=== PATIENT | female | born 1990 | race Caucasian/White ===

== ENCOUNTER → 2017-11-11 13:02 | Outpatient (CLI) | payer OTHER, SELFPAY ==
[2017-11-16 17:21] LABS: HPV Reflexed? NOT INDICATED
== END ==
PROVIDERS: Visit Provider Obstetrics & Gynecology
DX: Z12.4 Encounter for screening for malignant neoplasm of cervix (principal); Z01.419 Encounter for gynecological examination (general) (routine) without abnormal findings
CPT/HCPCS: 88175; G0145

== ENCOUNTER → 2018-06-21 13:10 | Outpatient (CLI) | payer OTHER, SELFPAY ==
[2018-06-21 15:33] LABS: Chlamydia Trachomatis by PCR Negative (Negative); Neisserai gonorrhoeae by PCR Negative (Negative); Probe Check PASS; Sample Adequacy Control PASS; Specimen Processing Control PASS
--- OUTSIDE RECORDS SUMMARY | 2018-08-07 16:51 | XMS RPT_ITS ---
:1990 Author Organization OHIP Care Team Providers Name Role Phone Zaira Nicole Attending Unavailable Zaira Nicole Attending Unavailable Zaira Nicole Attending Unavailable PROBLEMS PROBLEMS DATE TYPE CONDITION / CODE ATTENDING STATUS SOURCE 07/22/2018 Unknown Z34.81 - Encounter Bonnie Active [place] for supervision of [facility] other normal Hospital , first Repository trimester / Z34.81(ICD-10) 06/22/2018 Unknown Z32.01 - Encounter [place]nie Active [place] for test, [facility] result positive / Hospital Z32.01(ICD-10) Repository 06/22/2018 Unknown Z11.3 - Encounter Barron Nicole [place] for screening for [facility] infections with a Hospital predominantly Repository sexual mode of transmission / Z11.3(ICD-10) 11/11/2017 Unknown Z12.4 - Encounter Bonnie Active [place] for screening for [facility] malignant neoplasm Hospital of cervix / Repository Z12.4(ICD-10) 11/11/2017 Unknown Z01.419 - Encounter Bonnie Active [place] for gynecological [facility] examination Hospital (general) (routine) Repository without abnormal findings / Z01.419(ICD-10) PROCEDURES PROCEDURES No Procedure Records FoundRESULTS RESULTS URINALYSIS, ROUTINE Collected: 07/22/2018 Status: F Source: [place] (DIPSTICK) 2:38 PM [facility] REPOSITORY Order Comment: How was Urine Obtained? Urine, Random TYPE CODE TESTS RESULT OUT OF RANGE REFERENCE UNITS LAB L400.3000 Yellow COLOR Normal Yellow LAB L400.3050 Clear Normal CLARITY Clear LAB L400.3200 Normal mg/dl Normal GLUCOSE, UR Normal LAB L400.3300 Negative mg/dL Normal BILIRUBIN URINE Negative LAB L400.3400 Negative mg/dl Normal KETONE UR Negative LAB L400.3465 1.002-1.030 Normal SP.GR. DIPSTX 1.010 LAB L400.3550 5.0 - 8.0 pH UR Normal 7.0 LAB L400.3600 Negative mg/dl PROT Normal DIPSTX Negative LAB L400.3700 Normal mg/dl Normal UROBILI Normal LAB L400.3750 Negative Normal NITRITE UR Negative LAB L400.3780 Negative /ul High 50 OCCULT BLOOD-UR LAB L400.3800 Negative /ul High LEUK ESTERASE 500 Performed By: #### L400.2010 #### [facility] [address] [place], [address] RUBELLA IGG Collected: 07/22/2018 Status: F Source: [place] 2:38 PM [facility] REPOSITORY TYPE CODE TESTS RESULT OUT OF RANGE REFERENCE UNITS LAB L509.4000 IU/mL Normal Rubella IgG 127.9 Result Comment: Antibody results Interpretation of Immune Status < 5 IU/ml Presumed Non-immune 5 - < 10 IU/ml Equivocal > or = 10 IU/ml Presumed Immune Performed By: #### L509.4000, L3890.6005 #### [facility] [address] [facility] [address] HIV - [facility] Collected: 07/22/2018 Status: F Source: SP[place] 2:38 PM [facility] REPOSITORY TYPE CODE TESTS RESULT OUT OF RANGE REFERENCE UNITS LAB L3890.6005 Nonreactive Normal HIV - WC Non-Reactive Performed By: #### L509.4000, L3890.6005 #### [facility] [address] [place], [address] T AND S-NO Collected: 07/22/2018 Status: F Source: [place] CHARGE W/PNP 2:38 PM [facility] REPOSITORY Order Comment: Reason for Type AND Screen/Red Cells: Surgery? N TYPE CODE TESTS RESULT OUT OF RANGE REFERENCE UNITS LAB B10.0800 O Normal BLOOD POSITIVE TYPE GEL LAB B100.4050 Normal Ab SCREEN NEGATIVE GEL Performed By: #### B100.7550 #### [facility] [address] [place], [place], [address] CBC W/DIFF, AUTOMATED Collected: 07/22/2018 Status: F Source: [place] 2:38 PM [facility] REPOSITORY TYPE CODE TESTS RESULT OUT OF RANGE REFERENCE UNITS LAB L100.1000 4.4-11.0 K/mm3 Normal WBC 6.9 LAB L100.1200 4.2-5.4 M/mm3 Normal RBC 4.33 LAB L100.1300 12.0-15.0 g/dl Normal HGB 12.4 LAB L100.1400 37-47 % Normal HCT 37.8 LAB L100.1500 81-99 fL Normal MCV 87.3 LAB L100.1600 27.0-32.0 pg Normal MCH 28.6 LAB L100.1700 32-36 g/gl Normal MCHC 32.8 LAB L100.1810 11.6-14.6 % Normal RDW CV 14.6 LAB L100.1820 35.1-43.9 fl High RDW SD 46.8 LAB L100.1900 150-450 K/mm3 Normal PLT 239 LAB L100.2000 6.2-12.0 fl Normal MPV 10.1 LAB L100.2100 47-70 % High NEUT% 73.3 LAB L100.2200 19-41 % Normal LY% 19.7 LAB L100.2300 0-10 % Normal MONO% 6.1 LAB L100.2400 0-5 % Normal EO% 0.7 LAB L100.2500 0-1 % Normal BASO% 0.1 LAB L100.2550 0.0-0.9 % Normal IM GRAN % 0.100 Result Comment: IG% - Immature Granulocytes (promyelocytes, myelocytes and metamyelocytes) > 1% indicates that a LEFT SHIFT is Present. LAB L100.2620 2.0-7.7 X10 3/uL Normal Absolute Neut 5.1 LAB L100.2720 0.83-4.51 X10 3/ul Normal Absolute Lymph 1.37 Performed By: #### L100.0100 #### [facility] [address] [place], [address] RPR Collected: 07/22/2018 Status: F Source: [place] 2:38 PM [facility] REPOSITORY TYPE CODE TESTS RESULT OUT OF REFERENCE UNITS RANGE LAB L700.5100 NONREACTIVE Normal RPR NONREACTIVE Performed By: #### L700.5100 #### [facility] [address] [place], [place], [address] HEPATITIS B SURFACE Collected: 07/22/2018 Status: F Source: [place] AG 2:38 PM [facility] REPOSITORY TYPE CODE TESTS RESULT OUT OF RANGE REFERENCE UNITS LAB L3100.0400 Negative Normal HB Negative SURF AG Result Comment: Performed at: [facility] [id number] Orientor: Dani Vaca PhD, Phone: [phone] Performed By: #### L3100.0390, L3100.0625 #### [facility] (refer to report for specific site) refer to report for address and phone number HEPATITIS C ANTIBODIES Collected: 07/22/2018 Status: F Source: [place] 2:38 PM [facility] REPOSITORY TYPE CODE TESTS RESULT OUT OF RANGE REFERENCE UNITS LAB L3100.0650 0.0-0.9 s/co ratio Normal HEP C AB <0.1 Result Comment: Negative: < 0.8 Indeterminate: 0.8 - 0.9 Positive: > 0.9 The CDC recommends that a positive HCV antibody result be followed up with a HCV Nucleic Acid Amplification test ([id number]). Performed By: #### L3100.0390, L3100.0625 #### [facility] (refer to report for specific site) refer to report for address and phone number CT/NG [facility] BY PCR Collected: 06/21/2018 Status: F Source: [place] 9:40 AM [facility] REPOSITORY TYPE CODE TESTS RESULT OUT OF RANGE REFERENCE UNITS LAB L8200.2100 Negative Normal Chlam Negative Trac PCR LAB L8200.2200 Negative Normal NG by Negative PCR Performed By: #### L8200.1999 #### [facility] [address] [place], [place], [address] PAP I-G W/RFX Collected: 11/11/2017 Status: F Source: [place] HRHPV-APTIMA 11:10 AM [facility] REPOSITORY Order Comment: CYTOLOGY INFORMATION: - CLINICAL INFORMATION: - DATE LMP/MENOPAUSE: 10-24-17 LMP - COLLECTION VIAL: Thin Prep Vial - SOFTWARE DEVELOPMENT SPECIALIST SOURCE: CERVICAL/ENDOCERVICAL - COLLECTION TECHNIQUE: BRUSH/SPATULA Specimen Comment: [id number] Specimen Comment: No. of containers..01 ThinPrep Vial TYPE CODE TESTS RESULT OUT OF RANGE REFERENCE UNITS LAB L7400.0800 . Normal DIAGN Comment Result Comment: NEGATIVE FOR INTRAEPITHELIAL LESION AND MALIGNANCY. THIS SPECIMEN WAS RESCREENED PART OF OUR COMMERCIAL CREDIT SPECIALIST PROGRAM. LAB L7400.0900 . Normal ADEQ Comment Result Comment: Satisfactory for evaluation. Endocervical and/or squamous metaplastic cells (endocervical component) are present. LAB L7400.1400 . Normal PERFORM Comment Result Comment: Sally Stevens, Family Development Extension Specialist (ASCP) LAB L7400.1500 . Normal QC Comment REV Result Comment: Jesika Garcia, Family Development Extension Specialist (ASCP) LAB L7400.2575 . Normal TEST METHOD Comment Result Comment: This liquid based ThinPrep(R) pap test was screened with the use of an image guided system. LAB L7400.2600 . Normal . COMM LAB L7400.2700 . Normal PAPSMR Comment Result Comment: The Pap smear is a screening test designed to aid in the detection of premalignant and malignant conditions of the uterine cervix. It is not a diagnostic procedure and should not be used as the sole means of detecting cervical cancer. Both false-positive and false-negative reports do occur. LAB L7400.2800 . Normal HPV RFLX Comment Result Comment: The HPV DNA reflex criteria were not met with this specimen result therefore, no HPV testing was performed. Performed at: - [facility] [id number] Orientor: Khushi Camargo MD, Phone: [phone] Performed By: #### L7400.0353 #### [facility] (refer to report for specific site) refer to report for address and phone number ALLERGIES ALLERGIES No Allergies Records FoundENCOUNTERS ENCOUNTERS ADMIT/DISCHARGE ACCOUNT ADMITTING ENCOUNTER LOCATION SOURCE NUMBER CLASS 07/22/2018 [id number] Ambulatory [place] 0 [facility] ing:WOBLAB Repository 06/21/2018 [id number] Ambulatory [place] 8 [facility] ing:LABSPEC Repository 11/11/2017 [id number] Ambulatory [place] 5 [facility] ing:WOBLAB Repository PAYERS PAYERS ENCOUNTER GUARANTOR PAYER SUBSCRIBER SOURCE 07/22/2018 [place] Primary ADDISON [id number] Insurance:AULTCAREPol CHRISTNERDOB: [facility] icy [place]: [id number] [id number] Repository [address]Cnw: (330) Date:8310-51-21[phone] () [address] [address]BG: 07/22/2018 Secondary NOT GIVENUNK [place] Insurance:SELF PAY [facility] Number: Effective Repository Date:2018-07-22 06/21/2018 [place] Primary ADDISON [id number] Insurance:AULTCAREPol CHRISTNERDOB: [facility] icy Number: [id number], [place] [id number] Repository [address]Ufs: . Date:6452-37-08LV [address] ) [address] [address]JO: 06/21/2018 Secondary NOT GIVENUNK [place] Insurance:SELF PAY [facility] Number: Effective Repository Date:2018-06-21 11/11/2017 [place] Primary ADDISON Ortiz [id number] Insurance:AULTCAREPol [facility] ic Number: [place], [place] [id number] Repository [address]Wma: . Date:7683-94-81[address] () [address] [address]RC: 11/11/2017 Secondary NOT GIVENUNK [place] Insurance:SELF PAY [facility] Number: Effective Repository Date:2017-11-11
== END ==
PROVIDERS: Visit Provider Obstetrics & Gynecology
DX: Z32.01 Encounter for pregnancy test, result positive (principal); Z11.3 Encounter for screening for infections with a predominantly sexual mode of transmission
CPT/HCPCS: 87491; 87591

== ENCOUNTER → 2018-07-22 14:32 | Outpatient (CLI) | payer OTHER, SELFPAY ==
[2018-07-22 15:05] LABS: Color, Urine Yellow (Yellow); Glucose, Dipstick Normal (Normal); Ketone-Dipstick Negative (Negative); Leukocyte Esterase-Dipstick 500 /ul (Negative); Nitrite-Dipstick Negative (Negative); Occult Blood-Urine 50 /ul (Negative); Protein-Dipstick Negative (Negative); Urine Bilirubin Dipstick Negative (Negative); Urine Clarity Clear (Clear); Urine Urobilinogen Normal (Normal)
[2018-07-22 16:55] LABS: Absolute Lymphocyte Count 1.37 X10^3/ul (0.83-4.51); Absolute Neutrophil Count 5.1 X10^3/uL (2.0-7.7); Basophil# 0.01 X10^3/uL; Basophil% 0.1 % (0-1); Eosinophil# 0.05 X10^3/uL; Eosinophils% 0.7 % (0-5); Hematocrit 37.8 % (37-47); Hemoglobin 12.4 g/dl (12.0-15.0); Lymphocyte # 1.37 X10^3/ul (4.0); Lymphocyte % 19.7 % (19-41); Mean Corp Hgb Conc 32.8 g/gl (32-36); Mean Corpuscular Hgb 28.6 pg (27.0-32.0); Mean Corpuscular Volume 87.3 fL (81-99); Mean Platelet Vol. 10.1 fl (6.2-12.0); Monocyte# 0.42 X10^3/uL; Monocyte% 6.1 % (0-10); Neutrophil # 5.08 X10^3/uL (2.7-7.7); Neutrophil % 73.3 % (47-70); Platelet Count 239 K/mm3 (150-450); RBC Distribution Width CV 14.6 % (11.6-14.6); RBC Distribution Width SD 46.8 fl (35.1-43.9); Red Blood Count 4.33 M/mm3 (4.2-5.4); White Blood Count 6.9 K/mm3 (4.4-11.0)
[2018-07-22 17:25] LABS: HIV - WCH Non-Reactive (Nonreactive); Rubella IgG 127.9 IU/mL
[2018-07-22 18:19] LABS: POSITIVE COUNT NO; POSITIVE DIFFERENTIAL NO; POSITIVE MORPHOLOGY NO
[2018-07-29 00:14] LABS: Prenatal RPR NONREACTIVE (NONREACTIVE)
[2018-07-29 09:33] LABS: HEPATITIS B SURFACE AG Negative (Negative); Hep C Antibodies <0.1 s/co ratio (0.0-0.9)
== END ==
PROVIDERS: Visit Provider Obstetrics & Gynecology
DX: Z34.81 Encounter for supervision of other normal pregnancy, first trimester (principal)
CPT/HCPCS: 36415; 81002; 85025; 86703; 86762; 86803; 87340

== ENCOUNTER → 2018-11-24 10:09 | Outpatient (CLI) | payer OTHER, SELFPAY ==
[2018-11-24 12:12] LABS: Hematocrit 33.8 % (37-47); Hemoglobin 10.8 g/dl (12.0-15.0); Mean Corpuscular Hgb 27.1 pg (27.0-32.0); Mean Corpuscular Volume 84.7 fL (81-99); Mean Platelet Vol. 9.3 fl (6.2-12.0); Platelet Count 260 K/mm3 (150-450); RBC Distribution Width CV 14.2 % (11.6-14.6); RBC Distribution Width SD 43.2 fl (35.1-43.9); Red Blood Count 3.99 M/mm3 (4.2-5.4); White Blood Count 7.9 K/mm3 (4.4-11.0)
[2018-11-24 12:15] LABS: Scan Indicated on CBC? Y/N NO
[2018-11-24 12:43] LABS: Glucose Challenge Gest 1H 50g 135 mg/dL (70-140)
== END ==
PROVIDERS: Visit Provider Obstetrics & Gynecology
DX: Z34.83 Encounter for supervision of other normal pregnancy, third trimester (principal)
CPT/HCPCS: 36415; 82950; 85027

== ENCOUNTER → 2019-01-05 09:51 | Outpatient (CLI) | payer OTHER, SELFPAY | PROVIDERS: PCP Family Medicine; Visit Provider Obstetrics & Gynecology | DX: Z36.85 Encounter for antenatal screening for Streptococcus B (principal) | CPT/HCPCS: 87081 ==

== ENCOUNTER 2019-01-23 16:39 | Outpatient (CLI) | payer OTHER, SELFPAY ==
[2019-01-23 16:58] VITALS: BMI 34.7
--- NOTE | 2019-01-23 17:57 | OB.TRI.HP_ITS ---
- Problem List (1) Decreased movement Status: Acute Qualifiers: Fetus number: single or unspecified fetus Trimester: third trimester Qualified Code(s): O36.8130 - Decreased movements, third trimester, not applicable or unspecified History of Present Illness Date of Service: 01/23/19 Was patient seen by the physician?: Yes Reason For Visit: DECREASED MOVEMENT Final PATRICIA: 02/04/19 Gestational age: 38 Weeks and 2 Days History of Present Illness: 28yo sent from office for decreased FM with BPP 6/10 (-2 for gross movement and tone). Denies contractions, LOF, VB. Allergies hydromorphone [From Dilaudid] Adverse Reaction (Verified 01/23/19 17:01) Nausea Review of Systems Constitutional: Denies: Chills, Fever Respiratory: Denies: Shortness of Breath Gastrointestinal: Denies: Abdominal Pain, Nausea, Vomiting Gynecological: Denies: Vaginal bleeding Physical Exam General: Alert, Oriented x3, Cooperative, No apparent distress HEENT: Atraumatic, Normocephalic Abdomen: Soft, Non Tender, Non-Distended, Gravid Extremities:: No edema Neurological: Neuro grossly intact CLINICAL TRIAL EDUCATOR: Normal external genitalia Estimated gestational size: Appropriate for gestational size Cervix Dilation (cm): 3 Station: -3 Effacement (%): 60 - midposition, moderate NST - FHR Rate Baby A Baseline: 130 Variability:: Moderate Accelerations:: 15 x 15 Decelerations:: None NST Reactive:: Yes FHR Category:: Category I Uterine Activity:: 2/10 Impression/Plan Plan for continuous monitoring overnight with am US - BPP. If BPP remains 6/10 or less, will proceed with induction of labor.
[2019-01-23 22:38] LABS: ROM Internal Control Test YES-OK TO RESULT pt. (Internal QC); ROM Patient Test Negative (Negative)
[2019-01-23] MEDS: Mag Hydrox/Al Hydrox/Simeth 30 ML UDC PO (23:24)
--- NOTE | 2019-01-24 18:02 | US_ITS ---
STUDY: OBSTETRICAL ULTRASOUND - BIOPHYSICAL PROFILE REASON FOR EXAM: Female, 28 years old. Decreased movement. LMP: April 30, 2018. PRIOR ULTRASOUND: None. TECHNIQUE: Transabdominal TECHNICAL QUALITY: Adequate. FINDINGS: There is a single intrauterine fetus. The fetus is in a cephalic presentation. There is demonstrated cardiac activity with a heart rate of 132 bpm. There is a normal amniotic fluid volume. The largest amniotic fluid pocket measures 2.1 cm. The amniotic fluid index (SALLY) is 6.0 cm. The placenta is anterior in location and is not low lying. There are Grade 1 placental changes. Age by LMP: 38 weeks, 3 days. PATRICIA by LMP: February 04, 2019. Gender: Female BIOPHYSICAL PROFILE: Breathing Movements (FBM): 2 Gross Body Movements (GBM): 2 Tone (FT): 2 Amniotic Fluid Volume (AFV): 2 TOTAL SCORE: 8 / 8 US/Biophysical Prof W/O Non Stres IMPRESSION: Normal biophysical profile of 8/8. Electronically Signed: Flaco Griffin, at 10:34 EDT , Service support ,
== END 2019-01-24 11:25 | disposition home or self-care (01) ==
LOC: WPOUT 16:51 → WP 16:51
PROVIDERS: Family Provider Family Medicine; PCP Family Medicine; Referring Provider Obstetrics & Gynecology; Visit Provider Obstetrics & Gynecology
DX: O36.8130 Decreased fetal movements, third trimester, not applicable or unspecified (principal); Z3A.38 38 weeks gestation of pregnancy
CPT/HCPCS: 59025; 59050; 76819; 84112; 99218; G0378

== ENCOUNTER 2019-01-25 21:43 | Inpatient (IN) | payer OTHER, SELFPAY ==
[2019-01-25] MEDS: Lactated Ringers 1,000 ML 50 ML IV (22:40)
[2019-01-25 22:50] LABS: Absolute Lymphocyte Count 1.48 X10^3/uL (0.83-4.51); Absolute Neutrophil Count 6.8 X10^3/uL (2.0-7.7); Basophil# 0.01 X10^3/uL; Basophil% 0.1 % (0-1); Eosinophil# 0.06 X10^3/uL; Eosinophils% 0.7 % (0-5); Hematocrit 34.7 % (37-47); Hemoglobin 11.4 g/dL (12.0-15.0); Lymphocyte # 1.48 X10^3/ul (4.0); Lymphocyte % 16.3 % (19-41); Mean Corp Hgb Conc 32.9 g/dL (32-36); Mean Corpuscular Hgb 28.1 pg (27.0-32.0); Mean Corpuscular Volume 85.5 fL (81-99); Mean Platelet Vol. 9.3 fl (6.2-12.0); Monocyte# 0.65 X10^3/uL; Monocyte% 7.2 % (0-10); NRBC Flagged by Analyzer 0 % (0-5); Neutrophil # 6.83 X10^3/uL (2.7-7.7); Neutrophil % 75.3 % (47-70); Platelet Count 216 K/mm3 (150-450); RBC Distribution Width CV 18.1 % (11.6-14.6); RBC Distribution Width SD 55.6 fl (35.1-43.9); Red Blood Count 4.06 M/mm3 (4.2-5.4); White Blood Count 9.1 K/mm3 (4.4-11.0)
--- NOTE | 2019-01-25 22:51 | PCM.HPOB.BLA ---
History and Physical Date of Admission: 01/25/19 OB HISTORY AND PHYSICAL EXAMINATION History of this : 28 yo female Ab0 with EDC 02/04/2019 by Ultrasound, presents to Labor and Delivery with CC of gush of fluid. 38 5/7 wk in labor. care unremarkable. Pertinent Past Medical History: O positive GBS neg. Rubella Immune Negative. One prior vaginal delivery. Allergies: Dilaudid Medications: During - biotin 1 mg tablet; Mary 0.35 mg tablet; multivitamin tablet; 28 mg-800 mcg tablet; Keflex 500 mg capsule; ferrous gluconate 324 mg (37.5 mg iron) tablet Review of Systems: Gush of fluid, Some UCs. PHYSICAL EXAMINATION General Appearence: 28 yo female in no acute distress Vital Signs: AF, VSS Heart: RRR without rubs or gallops Lungs: CTA x 2 Breasts: deferred Abdomen: gravid Pelvis: Cervix: Presentation: cephalic Station: Fetus: Size: AGA Movement: present Heart: present reassuring. + UCs. Impression /Plan: Intrauterine . SROM. Presents with early labor 38 5/7 wk . Admit. Watch progress Anticipate See Progress Notes for Changes: Physician's Signature: Date:
[2019-01-25 22:52] VITALS: BMI 35.6
[2019-01-25] MEDS: Nalbuphine 10 MG/ML Ampul IV (23:12)
[2019-01-26] MEDS: Oxytocin 30 units/NS 500 ml 30 UNITS/500 ML IV.SOLN 334 UNITS IV (00:50)
--- NOTE | 2019-01-26 00:51 | DCINST_ITS ---
Discharge Diet: No Restrictions Discharge Activity: May Shower, May Take a Tub Bath May resume sexual activity in: 4-6 weeks Additional Activity Instructions:: Nothing in the vagina for 4-6 weeks. You may return to work/school in 6 weeks. Additional Instructions: If you experience any of the following, contact your healthcare provider. * Bleeding that soaks a pad every hour for 2 hours * Fever 100.4 or higher * Unrelieved abdominal pain * Problems urinating (including inability to urinate or burning while urinating). * Visual changes * Severe headache * Flu-like symptoms * Pain or redness in one of both of your breasts * Pain, warmth, tenderness or swelling in your legs, especially the calf area * Frequent nausea and vomiting * Symptoms of depression or anxiety If you experience any of the following, call 911 or go to the nearest Emergency Room. * Chest pain * Problems breathing * Seizure activity * Partial or complete paralysis of a body part, slurred speech, weakness or drooping of the face, or a sudden inability to walk or hold your balance Allergies/Adverse Reactions: Allergies hydromorphone [From Dilaudid] Adverse Reaction (Verified 01/23/19 17:01) Nausea Medications to take at Discharge Cetirizine HCl [Zyrtec] 10 mg PO DAILY 01/23/19 Ferrous Sulfate [Iron] 325 mg PO BID 01/23/19 Vits [Prenatabs FA] 1 tab PO DAILY 01/23/19 Please Follow Up With: Zaira Nicole MD - [phone] When: Call to make an appointment with your doctor in 6 weeks. Primary Care Physician: Shea Méndez [Primary Care Provider] - Test Results: Test results from this visit will be discussed in further detail at your follow- up appointment, if applicable. Proposed Discharge Date: 01/28/19
--- NOTE | 2019-01-26 00:51 | PCM.DCVAG ---
Discharge Diet: No Restrictions Discharge Activity: May Shower, May Take a Tub Bath May resume sexual activity in: 4-6 weeks Additional Activity Instructions:: Nothing in the vagina for 4-6 weeks. You may return to work/school in 6 weeks. Additional Instructions: If you experience any of the following, contact your healthcare provider. Bleeding that soaks a pad every hour for 2 hours Fever 100.4 or higher Unrelieved abdominal pain Problems urinating (including inability to urinate or burning while urinating). Visual changes Severe headache Flu-like symptoms Pain or redness in one of both of your breasts Pain, warmth, tenderness or swelling in your legs, especially the calf area Frequent nausea and vomiting Symptoms of depression or anxiety If you experience any of the following, call 911 or go to the nearest Emergency Room. Chest pain Problems breathing Seizure activity Partial or complete paralysis of a body part, slurred speech, weakness or drooping of the face, or a sudden inability to walk or hold your balance Allergies/Adverse Reactions: Allergies hydromorphone [From Dilaudid] Adverse Reaction (Verified 01/23/19 17:01) Nausea Medications to take at Discharge Cetirizine HCl [Zyrtec] 10 mg PO DAILY 01/23/19 Ferrous Sulfate [Iron] 325 mg PO BID 01/23/19 Vits [Prenatabs FA] 1 tab PO DAILY 01/23/19 Please Follow Up With: Zaira Nicole MD - [phone] When: Call to make an appointment with your doctor in 6 weeks. Primary Care Physician: Shea Méndez [Primary Care Provider] - Test Results: Test results from this visit will be discussed in further detail at your follow-up appointment, if applicable. Proposed Discharge Date: 01/28/19
--- NOTE | 2019-01-26 00:53 | PCM.OPRPT ---
Vaginal Delivery Maternal Presentation: Active Labor, Spontaneous Rupture of Membranes Final PATRICIA: 02/04/19 Final PATRICIA Source: US <20 weeks Gestational age: 38 Weeks and 5 Days Date of Procedure: 01/26/19 Pre-Operative Diagnosis: 38 5/7 wk SROM Labor Post-Operative Diagnosis: Same Surgery/ Procedure Performed: Spontaneous Vaginal Delivery Anesthesiologist: Constantino Santoyo MD Type of Anesthesia: Epidural Description of Procedure: of a diaz viable female over intact perineum. head delivered ZAIRA. OP and nares bulb suctioned on perineum. no nuchal cord. Shoulders delivered easily. to maternal abdomen. Cord clamped x two and cut. Routine cord blood for typing obtained. PP exam: no lacerations, no repair Placenta delivered by spont expulsion, expression. 3V normal appearing and intact with trailing membranes ray ja and needle counts correct times two pt and infant tolerated delivery well. To recovery, stable condition. Presentation: Vertex, ZAIRA Placental Delivery Description: Spontaneous, Expressed Placenta Disposition: [facility] Cord Vessel Description: 3 Vessels Cord Entanglement: None Estimated Blood Loss: 300 A gender: Female (1 minute): 8 (5 minute): 9 Episiotomy Description: None Laceration: None Medications given after delivery: IV Pitocin Complications: None
[2019-01-26] MEDS: Oxytocin 30 units/NS 500 ml 30 UNITS/500 ML IV.SOLN 167 UNITS IV (01:20)
--- NOTE | 2019-01-26 06:10 | PN.OBGYN_ITS ---
Subjective: DAY OF DELIVERY Doing well. breast feeding. Baby 7# 7 oz. Minimal pain. No concerns voiced. - Physical Exam General: Alert, Oriented x3, Cooperative, No apparent distress HEENT: Atraumatic Neck: Supple Neurological: Cranial nerves II-XII grossly intact Psych/Mental Status: Normal Affect Weight: 85.5 kg Body Mass Index (BMI) 35.6 Intake and Output for Last 24 Hours 01/24/19 01/25/19 01/26/19 23:59 23:59 23:59 Intake Total 1927 / 1927 Output Total 800 / 800 Balance 1127 / 1127 Laboratory Tests Past 24 Hrs 01/25/19 01/25/19 22:40 22:40 WBC 9.1 RBC 4.06 L Hgb 11.4 L Hct 34.7 L MCV 85.5 MCH 28.1 MCHC 32.9 RDW Std Deviation 55.6 H RDW Coeff of Colt 18.1 H Plt Count 216 MPV 9.3 Immature Gran % (Auto) 0.400 Neut % (Auto) 75.3 H Lymph % (Auto) 16.3 L [place] % (Auto) 7.2 Eos % (Auto) 0.7 Baso % (Auto) 0.1 Absolute Neuts (auto) 6.8 Absolute Lymphs (auto) 1.48 Absolute Nucleated RBC 0.00 Nucleated RBC % 0 Blood Type O POSITIVE Antibody Screen NEGATIVE Medical Necessity - Tobacco Use Smoking Status: Never smoker Assessment/Plan All Active Problems Decreased movement (Acute) Day of Delivery Stable pp. Continue routine pp care.
[2019-01-26] MEDS: Ferrous Sulfate 325 MG Tablet PO ×2 (08:08→17:51)
[2019-01-26] MEDS: Loratadine 10 MG Tablet PO (08:08)
[2019-01-26] MEDS: Prenatal Vits Tablet 1 TABLET PO (08:08)
[2019-01-26 08:15] VITALS: BP 104/62; PULSE 76; RESP 16; TEMP 36.7
[2019-01-26] MEDS: Acetaminophen 500 MG Tablet 1000 MG PO (09:26)
[2019-01-26 12:00] VITALS: BP 118/61; PULSE 86; RESP 16; TEMP 37.1
[2019-01-26 15:55] VITALS: BP 125/72; PULSE 83; RESP 16; TEMP 36.9
[2019-01-26 21:10] VITALS: BP 113/59; PULSE 83; RESP 18; TEMP 36.6
[2019-01-27 01:24] VITALS: BP 108/64; PULSE 76; RESP 18; TEMP 36.3
--- NOTE | 2019-01-27 07:07 | PCM.PN.OB ---
Subjective: PPD#1 Doing well. Baby nursing with minimal wt loss noted. Plans to go home today. Objective: walking around room, holding sleeping baby. - Physical Exam General: Alert, Oriented x3, Cooperative, No apparent distress HEENT: Atraumatic, EOMI Neck: Supple Neurological: Cranial nerves II-XII grossly intact Psych/Mental Status: Normal Affect Vital Signs Temp Pulse Resp BP 97.3 F L 76 18 108/64 01/27/19 01:24 01/27/19 01:24 01/27/19 01:24 01/27/19 01:24 Oxygen Delivery Method Room Air Weight: 85.5 kg Body Mass Index (BMI) 35.6 Intake and Output for Last 24 Hours 01/25/19 01/26/19 01/27/19 23:59 23:59 23:59 Intake Total 7 / 192 Output Total 1400 / 1400 Balance 527 / 527 Medical Necessity - Tobacco Use Smoking Status: Never smoker Assessment/Plan All Active Problems Decreased movement (Acute) PPD#1 Stable pp. Dischg home later today
[2019-01-27 08:35] VITALS: BP 122/69; PULSE 82; RESP 16; TEMP 36.6
[2019-01-27] MEDS: Ferrous Sulfate 325 MG Tablet PO (11:28)
[2019-01-27] MEDS: Loratadine 10 MG Tablet PO (11:28)
[2019-01-27] MEDS: Prenatal Vits Tablet 1 TABLET PO (13:38)
[2019-01-27 14:15] VITALS: BP 131/79; PULSE 87; RESP 17; TEMP 36.6
== END 2019-01-27 14:45 | disposition home or self-care (01) | DRG 807 ==
PROVIDERS: Admitting Provider Obstetrics & Gynecology; Family Provider Family Medicine; PCP Family Medicine; Referring Provider Obstetrics & Gynecology; Visit Provider Obstetrics & Gynecology
DX: O80 Encounter for full-term uncomplicated delivery (principal); Z37.0 Single live birth; Z3A.38 38 weeks gestation of pregnancy
CPT/HCPCS: 59025; 59050; 85025; 86850; 86900; 99218; J7120; G0378